=== PATIENT | female | born 1975 | race Caucasian/White ===

== ENCOUNTER 2017-05-27 09:33 | Emergency (ER) | payer BC, MEDICAID ==
[~2017-05-27] VITALS: Ht 167.6 cm; Wt 68.0 kg
[2017-05-27 09:35] VITALS: BP 179/98; PULSE 112; RESP 18; TEMP 98.2; O2SAT 98
--- NOTE | 2017-05-27 09:53 | PD ---
HPI Chief Complaint: Injury Time Seen by Provider: 09:48 Travel History International Travel<30 days: No Contact w/Intl Traveler<30days: No Traveled to known affect area: No History of Present Illness HPI Patient comes in complaining of right elbow pain status post slip and fall that occurred about an hour prior to arrival. Patient states she was out exercising going down some stairs when she lost her balance and she caught herself with her right upper extremity. Patient felt fine initially however after she got home started noticing some pain in her right elbow that is worse with certain movement. Pain radiates distally. Patient denies doing anything for this prior to coming to the emergency department. Pain improves with not moving the elbow. Denies hitting her head, loss consciousness, chest pain pre-or post fall , numbness or tingling anywhere, back pain, shortness breath, abdominal pain, or . PFSH Past Medical History Medical History: Denies Significant Hx ?: Not LMP: 05/10/17 Social History Alcohol Use: No Tobacco Use: No Substance Use: No Allergies-Medications (Allergen,Severity, Reaction): Coded Allergies: No Known Allergies (Unverified , 05/27/17) Reported Meds & Prescriptions Reported Meds & Active Scripts Active Naprosyn (Naproxen) 500 Mg Tab 500 Mg PO Q12HR PRN Lortab (Hydrocodone-Acetaminophen) 5-325 Mg Tab 1 Tab PO Q6H PRN Review of Systems Except as stated in HPI: all other systems reviewed are Neg Physical Exam Narrative GENERAL: Well-developed, well nourished, in no acute distress, and non-ill appearing. SKIN: Focused skin assessment warm and dry. HEAD: Atraumatic. Normocephalic. EYES: Pupils equal and round. EOMI. No scleral icterus. No injection or drainage. ENT: No nasal bleeding or discharge. Mucous membranes pink and moist. NECK: Trachea midline. Supple. No nuclear rigidity. CARDIOVASCULAR: Radial pulses 2+, intact, and equal bilaterally. Capillary refill less than 2 seconds. RESPIRATORY: No accessory muscle use. No respiratory distress. MUSCULOSKELETAL: No obvious deformities. No clubbing. No cyanosis. No edema. Decreased range of motion right elbow secondary to pain. Elbow : No laxity noted with varus and valgus maneuvers. Pulses equal BL distal to injury. Capillary refill less than 2 seconds distal to injury and equal BL. FROM distal to injury and equal BL. Strength distal to injury equal BL. NV intact distal to injury and equal BL. Flexion and extension of thumb equal BL. Equal strength and movement with abduction/adductions of BL fingers. [employer] strength equal BL. NEUROLOGICAL: Awake and alert. No obvious cranial nerve deficits. Motor grossly within normal limits. Normal speech. PSYCHIATRIC: Appropriate mood and affect; insight and judgment normal. Data Data Last Documented VS Vital Signs Date Time Temp Pulse Resp B/P (MAP) Pulse Ox O2 Delivery O2 Flow Rate FiO2 05/27/17 09:35 98.2 112 18 179/98 (125) 98 Orders Orders Elbow, Complete (4 Vws) (05/27/17 ) Ice/Cold Pack (05/27/17 09:48) Splint Or Brace Apply/Monitor (05/27/17 10:20) [facility] Medical Decision Making Medical Screen Exam Complete: Yes Emergency Medical Condition: Yes Interpretation(s) Right elbow x-ray read by the radiologist shows: Impaction type fracture of the proximal radial metaphysis with intra-articular edema. Differential Diagnosis Fracture, strain, contusion, dislocation, other Narrative Course The patient sustained a fracture. The distal extremity appears neurovascularly intact, without evidence of neurovascular injury nor compartment syndrome. Tendon exam also was intact. The effected limb was splinted. The patient was discharged on pain medication along with fracture and splint care instructions and given warnings for vascular compromise. The patient is to follow up with Orthopedics. The patient agrees with plan. Patient in no obvious distress upon re-evaluation. All pertinent Radiology result(s) discussed with patient. Discussed patient with Dr. Chakraborty prior to discharge, who is in agreement plan of care and disposition. Patient was asked if they wanted to speak to my attending, which the patient did not wish to do at this time. Any questions/concerns in reference to patient diagnosis/ condition discussed and clarified prior to patient's discharge. Reinforced sheer importance of close follow up with orthopedics. Instructed patient to return to ED immediately, if symptoms return/worsen. Pt showed understanding of above instructions. Further instructions and recommendations were detailed in discharge paperwork. Pt ambulated without difficulty out of ED at discharge. Diagnosis Primary Impression: Radial head fracture, closed Qualified Codes: S52.124A - Nondisplaced fracture of head of right radius, initial encounter for closed fracture Referrals: Lora Guevara MD Patient Instructions: Elbow Fracture (ED), General Instructions, How to Use a Sling (GEN), Splint Care (ED) Additional Instructions: Follow-up with in one to 3 days for reevaluation. Call to make an appointment. Take all medication as prescribed. Apply ice to affected area 20 minutes per hour as needed for pain. Return to the emergency department if symptoms get worse. Med/Other Pt SpecificInfo: Prescription(s) given Scripts Naproxen (Naprosyn) 500 Mg Tab 500 MG PO Q12HR Y for PAIN SCALE 1 TO 10, #14 TAB 0 Refills Prov: Irwin Chakraborty MD 05/27/17 Hydrocodone-Acetaminophen (Lortab) 5-325 Mg Tab 1 TAB PO Q6H Y for PAIN GREATER THAN 7, #12 TAB 0 Refills Prov: Irwin Chakraborty MD 05/27/17 Disposition: 01 DISCHARGE HOME Condition: Stable Mars Cameron May 27, 2017 09:53
--- NOTE | 2017-05-27 10:18 | RADRPT ---
EXAM DATE/TIME: 05/27/2017 10:10 [facility] COMPARISON: No previous studies available for comparison. INDICATIONS : Right elbow pain after falling today. MEDICAL HISTORY : None. SURGICAL HISTORY : None. ENCOUNTER: Initial ACUITY: 1 day PAIN SCORE: 8/10 LOCATION: Right proximal lateral elbow. FINDINGS: Multiple view examination of the right elbow intra-articular edema with winging of the anterior and p osterior fat-pad. In addition, there appears to be deformity of the proximal radial metaphysis charac teristic of a impaction type fracture. CONCLUSION: Impaction type fracture of the proximal radial metaphysis with intra-articular edema. Greyson Rosado MD on May 27, 2017 at 10:14 Board Certified Radiologist. This report was verified electronically.
[2017-05-27] MEDS ORDERED: NAPR500 PO (10:21)
[2017-05-27] MEDS ORDERED: HYDR-3533 PO (10:21)
== END 2017-05-27 11:07 | disposition home or self-care (01) ==
LOC: NEPK 09:33
DX: S52.124A Nondisplaced fracture of head of right radius, initial encounter for closed fracture (principal); W10.9XXA Fall (on) (from) unspecified stairs and steps, initial encounter
CPT/HCPCS: 29105; 73080

== ENCOUNTER 2017-05-27 19:10 | Emergency (ER) | payer BC, MEDICAID ==
[~2017-05-27] VITALS: Ht 167.6 cm; Wt 70.0 kg
[~2017-05-27 19:10] MED LIST: HYDR-3533 PO; NAPR500 PO
[2017-05-27 19:12] VITALS: BP 178/107; PULSE 101; RESP 15; TEMP 98.2; O2SAT 97
--- NOTE | 2017-05-27 19:40 | PD ---
HPI Chief Complaint: Pain: Acute or Chronic Time Seen by Provider: 19:37 Travel History International Travel<30 days: No Contact w/Intl Traveler<30days: No Traveled to known affect area: No History of Present Illness HPI 42-year-old female is emergency department status post fracture to the right radial head. Patient was seen earlier today and placed in a long-arm splint and sling. She is back complaining of increased pain, and difficulty following follow-up. Patient is concerned that she may need a cast the next couple of days. She went to do that she has [id number] [employer]. She has no numbness or tingling. She has been taking Lortab and not her Naprosyn yet. She reports her pain currently as 7 out of 10. She has no known drug allergies. [facility] Past Medical History Medical History: Denies Significant Hx ?: Not LMP: 05/10/17 Past Surgical History Section: Yes Social History Alcohol Use: Yes (OCC) Tobacco Use: No Substance Use: No Allergies-Medications (Allergen,Severity, Reaction): Coded Allergies: No Known Allergies (Unverified , 05/27/17) Reported Meds & Prescriptions Reported Meds & Active Scripts Active Naprosyn (Naproxen) 500 Mg Tab 500 Mg PO Q12HR PRN Lortab (Hydrocodone-Acetaminophen) 5-325 Mg Tab 1 Tab PO Q6H PRN Review of Systems Except as stated in HPI: all other systems reviewed are Neg General / Constitutional: No: Fever Eyes: No: Visual changes HENT: No: Headaches Cardiovascular: No: Chest Pain or Discomfort Respiratory: No: Shortness of Breath Gastrointestinal: No: Abdominal Pain Genitourinary: No: Dysuria Musculoskeletal: No: Pain Skin: No Rash Neurologic: No: Weakness Psychiatric: No: Depression Endocrine: No: Polydipsia Hematologic/Lymphatic: No: Easy Bruising Physical Exam Narrative GENERAL: Patient appears in mild distress. SKIN: Warm and dry. Normal color. Normal turgor. HEAD: Atraumatic. Normocephalic. EYES: Pupils equal and round. No scleral icterus. No injection or drainage. ENT: No nasal bleeding or discharge. Mucous membranes pink and moist. Pharynx clear. Airway is patent. NECK: Trachea midline. Supple and nontender. CARDIOVASCULAR: Regular rate and rhythm. RESPIRATORY: No accessory muscle use. Clear to auscultation. Breath sounds equal bilaterally. MUSCULOSKELETAL: Extremities without clubbing, cyanosis, or edema. No obvious deformities. Patient has normal capillary refill and sensation to the right distal upper extremity. NEUROLOGICAL: Awake and alert. No obvious cranial nerve deficits. Motor grossly within normal limits. Five out of 5 muscle strength in the arms and legs. Normal speech. PSYCHIATRIC: Appropriate mood and affect; insight and judgment normal. Data Data Last Documented VS Vital Signs Date Time Temp Pulse Resp B/P (MAP) Pulse Ox O2 Delivery O2 Flow Rate FiO2 05/27/17 19:12 98.2 101 15 178/107 (130) 97 Room Air MDM Medical Decision Making Medical Screen Exam Complete: Yes Emergency Medical Condition: Yes Differential Diagnosis Right radial fracture. Splint issued. Sling issue. Right Arm pain. Narrative Course Patient sling is readjusted and she is shown how to wear properly. A medical screening exam was performed: At the time of evaluation the presenting medical condition was determined not to be of an emergent nature. The patient was given the option of receiving additional care, but declined. Patient was given options for additional community resources from which to obtain care. The Patient Has Been advised to seek medical attention for their presenting complaint. The patient has been advised to return to the ER at any time if an emergent condition develops. Condition: Stable Rylan Simon May 27, 2017 19:40
== END 2017-05-27 19:48 | disposition left against medical advice (07) ==
LOC: NED 19:10
DX: S52.91XD Unspecified fracture of right forearm, subsequent encounter for closed fracture with routine healing (principal); X58.XXXA Exposure to other specified factors, initial encounter
CPT/HCPCS: 99281